=== PATIENT | female | born 1995 | race Caucasian/White ===

== ENCOUNTER 2019-12-05 22:26 | Emergency (ER) | payer BC ==
[2019-12-05 22:37] VITALS: BMI 34.1
--- NOTE | 2019-12-05 22:55 | PDOC ---
History of Present Illness - General Chief Complaint: Nausea/Vomiting Stated Complaint: VOMITTING Time Seen by Provider: 12/05/19 22:41 - History of Present Illness Initial Comments: Ms. Pizarro is a 24 y/o female, who has been caring for her aunt who was diagnosed with C. Diff yesterday, presenting today with nausea, vomiting, and diarrhea for the past day. Reports vomiting x5 and diarrhea x5 today. No blood in the stool or vomit. Reports hot flashes and chills but no fever. Reports generalized body aches. Reports abdominal cramping. Denies chest pain/shortness of breath. Denies headache. Denies leg swelling. Denies dysuria. Past History - Past Medical History Allergies/Adverse Reactions: Allergies Allergy/AdvReac Type Severity Reaction Status Date / Time No Known Allergies Allergy Verified 12/05/19 23:27 Home Medications: Ambulatory Orders Ashlyna 0.15-0.03-0.01 mg Tab 1 tab PO DAILY 12/05/19 Ondansetron [Ondansetron Odt] 8 mg PO BID PRN 3 Days #6 tab.rapdis 12/06/19 COPD: No - Psycho Social/Smoking Cessation Hx Smoking History: Never smoked Have you smoked in the past 12 months: No Information on smoking cessation initiated: No Hx Alcohol Use: No Drug/Substance Use Hx: No Review of Systems - Review of Systems Comments:: GENERAL/CONSTITUTIONAL: No fever. Reports chills. No weakness._ HEAD, EYES, EARS, NOSE AND THROAT: No change in vision. No change in hearing. No sore throat._ CARDIOVASCULAR: No chest pain or shortness of breath_ RESPIRATORY: Denies cough, hemoptysis_ GASTROINTESTINAL: Reports abdominal cramps, nausea, vomiting, diarrhea. GENITOURINARY: No dysuria, frequency, or change in urination._ MUSCULOSKELETAL: No joint or muscle swelling or pain. No neck or back pain._ SKIN: No rash_ NEUROLOGIC: No headache, vertigo, loss of consciousness, or change in strength/ sensation._ ENDOCRINE: No increased thirst. No abnormal weight change_ HEMATOLOGIC/LYMPHATIC: No anemia, easy bleeding, or history of blood clots._ ALLERGIC/IMMUNOLOGIC: No hives or skin allergy._ *Physical Exam - Vital Signs Last Vital Signs Temp Pulse Resp BP Pulse Ox 98.5 F 107 H 17 136/85 100 12/05/19 22:32 12/05/19 22:32 12/05/19 22:32 12/05/19 22:32 12/05/19 22:32 - Physical Exam GENERAL: Awake, alert, and oriented to person/place/time, in no acute distress_ HEAD: No signs of trauma, normoc ephalic, atraumatic _ EYES: PERRLA, EOMI, sclera anicteric, conjunctiva clear_ ENT: Hearing grossly normal, nares patent, oropharynx clear without exudates. No uvular deviation. Moist mucosa_ NECK: Normal ROM, supple, no lymphadenopathy, JVD, or masses_ LUNGS: No distress, speaks in full sentences, clear to auscultation bilaterally _ HEART: Regular rate and rhythm, normal S1 and S2, no murmurs appreciated, peripheral pulses normal and equal bilaterally._ ABDOMEN: Soft, nontender, normoactive bowel sounds. No guarding, no rebound. No masses_ EXTREMITIES: Normal inspection, Normal range of motion, no edema. No clubbing or cyanosis_ NEUROLOGICAL: Cranial nerves II through XII grossly intact. Normal speech, normal gait, no focal sensorimotor deficits _ SKIN: Warm, Dry, normal turgor, no rashes or lesions noted_ ED Treatment Course - LABORATORY CBC & Chemistry Diagram: 12/06/19 00:16 12/06/19 00:16 Medical Decision Making - Medical Decision Making 12/05/19 23:04 24 y/o female presenting with abdominal cramps, nausea, vomiting, diarrhea. Reports hot flashes and chills but no fever. Was caring for aunt with c. Diff yesterday. No recent abx use in patient or aunt. Not immunocompromised. -cbc, cmp, lipase -ua, ucx, upreg -stool culture for c. diff -zofran, fluids, tylenol 12/06/19 02:08 Pt reassessed. Reports feeling much improved. 12/06/19 02:31 Positive ketones in UA. Will give additional 1L of NS. Urine Test Results Urine Color Yellow 12/06/19 00:05 Urine Appearance Cloudy 12/06/19 00:05 Urine pH 5.0 (5.0-8.0) 12/06/19 00:05 Ur Specific [place] 1.034 (1.010-1.035) 12/06/19 00:05 Urine Protein Negative (NEGATIVE) 12/06/19 00:05 Urine Glucose (UA) Negative (NEGATIVE) 12/06/19 00:05 Urine Ketones 2+ (NEGATIVE) H 12/06/19 00:05 Urine Blood Negative (NEGATIVE) 12/06/19 00:05 Urine Nitrite Negative (NEGATIVE) 12/06/19 00:05 Urine Bilirubin Negative (NEGATIVE) 12/06/19 00:05 Ur Leukocyte Esterase Negative (NEGATIVE) 12/06/19 00:05 12/06/19 02:30 Pt signed out to Dr. Sherly Dorado pending lab results. Discharge - Discharge Information Problems reviewed: Yes Clinical Impression/Diagnosis: Nausea vomiting and diarrhea Condition: Stable Disposition: HOME - Admission No - Additional Discharge Information Prescriptions: Ondansetron [Ondansetron Odt] 8 mg PO BID PRN 3 Days #6 tab.rapdis PRN Reason: Nausea And/Or Vomiting - Follow up/Referral Referrals: Galindo Contreras MD [Staff Physician] - - Patient Discharge Instructions Patient Printed Discharge Instructions: DI for Nausea -- Adult, DI for Vomiting -- Adult Additional Instructions: Please take Zofran 8 mg twice per day as needed for your nausea. If you experience any new, worsening, or concerning symptoms, or the nausea/ vomiting/diarrhea does not improve after a few days, please see your primary care doctor or return to the emergency room. - Post Discharge Activity
[2019-12-05] MEDS ORDERED: ONDANSETRON 4 MG/2 ML VIAL IVPUSH ONE (23:00)
[2019-12-05] MEDS ORDERED: SODIUM CHLORIDE 0.9% 500 ML INFUS.BAG IV ONE (23:00)
[2019-12-05] MEDS ORDERED: ACETAMINOPHEN 1000 MG/100 ML VIAL (NON FORMULARY) IVPB ONE (23:09)
[2019-12-05] MEDS ORDERED: HYOSCYAMINE SULFATE 0.125 MG *ODT PO ONE (23:23)
--- NOTE | 2019-12-05 23:43 | PDOC ---
Documentation entered by Veda Lyons SCRIBE, acting as scribe for Nisha Larios MD. Nisha Larios MD: This documentation has been prepared by the Serena watts Brenda, SCRIBE, under my direction and personally reviewed by me in its entirety. I confirm that the documentation accurately reflects all work, treatment, procedures, and medical decision making performed by me. Attending Attestation - Resident Resident Name: Vish Lombardo - ED Attending Attestation I have performed the following: I have examined & evaluated the patient, The case was reviewed & discussed with the resident, I agree w/resident's findings & plan, Exceptions are as noted - HPI HPI: 12/05/19 23:19 The patient is a 24 year old female with a significant past medical history of who presents to the ED for evaluation of 1 day of nausea, 5 episodes of NBNB vomiting and 5 episodes of diarrhea today Patient states that she brought her on to to the emergency department yesterday and had been caring for her. She was ultimately diagnosed with C. difficile. Pt noted today that she began having diarrhea earlier today She tried eating and when she arrived home, she developed nausea and vomiting Pt as now had at least 5 episodes of NBNB emesis She has had liquid stools, pink tinged now Each time she eats she has diarrhea (+) hot flashes and chills, no fever. Allergies: NKA Social history: No reported hx of tobacco use, alcohol use or illicit drug use. 12/05/19 23:29 - Physicial Exam PE: 12/05/19 23:22 GENERAL: The patient is in no acute distress, patient appears to be in pain, patient in the position. ENT: Ears normal, nares patent, oropharynx clear without exudates. Dry mucous membranes. NECK: Normal range of motion, supple, no nuchal rigidity LUNGS: Breath sounds equal, clear to auscultation bilaterally. No wheezes, and no crackles. HEART: Regular rate and rhythm, normal S1 and S2 without murmur, rub or gallop. ABDOMEN: Soft, nondistended, upper abdominal tenderness to palpation, no lower abdominal tenderness to palpation, no involuntary guarding, no rebound EXTREMITIES: Normal range of motion, no edema. NEUROLOGICAL: Cranial nerves II through XII grossly intact. Normal speech. No focal neurological deficits. SKIN: Warm, Dry, normal turgor, no rashes or lesions noted. 12/05/19 23:40 - Medical Decision Making 12/05/19 23:41 24-year-old female presenting to the emergency department with a complaint of nausea, vomiting, diarrhea which began today. No associated systemic signs of illness. Patient is able to tolerate p.o. now however this results in diarrhea Patient does have upper abdominal tenderness to palpation Will do: Labs IV hydration Stool for culture Consider CT of the abdomen and pelvis Zofrtavo hyoscyamine Reassess Labs pending Signed out to Dr. Cummings
[2019-12-06 00:06] VITALS: BP 136/86; PULSE 97; TEMP 98.4
[2019-12-06] MEDS ORDERED: ACETAMINOPHEN INJECTION 100 ML IVPB ONE (00:16)
[2019-12-06 02:03] LABS: BASO % 0.3 % (0-2.0); EOS % 1.3 % (0-4.5); HEMATOCRIT 44.4 % (32.4-45.2); LYMPH % 8.4 % (8-40); MCH 29.5 pg (25.7-33.7); MCHC 33.8 g/dl (32.0-36.0); MEAN CELL VOLUME 87.4 fl (80-96); MEAN PLT VOLUME 8.8 fl (7.5-11.1); MONO % 5.3 % (3.8-10.2); NEUT % 84.7 % (42.8-82.8); PLATELET COUNT 414 K/MM3 (134-434); RBC 5.08 M/mm3 (3.60-5.2); RDW 12.6 % (11.6-15.6); WHITE BLOOD COUNT 10.2 K/mm3 (4.0-10.0)
[2019-12-06 02:09] LABS: URINE APPEARANCE CLOUDY; URINE BILIRUBIN NEGATIVE (NEGATIVE); URINE COLOR YELLOW; URINE GLUCOSE (UA) NEGATIVE (NEGATIVE); URINE KETONE 2+ (NEGATIVE); URINE LEUK ESTERASE NEGATIVE (NEGATIVE); URINE NITRITE NEGATIVE (NEGATIVE); URINE PROTEIN NEGATIVE (NEGATIVE)
[2019-12-06] MEDS ORDERED: SODIUM CHLORIDE 0.9% 500 ML INFUS.BAG IV ONE (02:30)
[2019-12-06 02:32] LABS: ALBUMIN 3.8 g/dl (3.4-5.0); BILIRUBIN,TOTAL 0.8 mg/dL (0.2-1); BLOOD UREA NITROGEN 13.9 mg/dL (7-18); CALCIUM 9.6 mg/dL (8.5-10.1); CREATININE 0.8 mg/dL (0.55-1.3); TOT PROT 7.5 g/dl (6.4-8.2)
--- NOTE | 2019-12-06 02:38 | PDOC ---
*Physical Exam - Vital Signs Last Vital Signs Temp Pulse Resp BP Pulse Ox 98.4 F 97 H 18 136/86 99 12/05/19 23:28 12/05/19 23:28 12/05/19 23:28 12/05/19 23:28 12/05/19 23:28 ED Treatment Course - LABORATORY CBC & Chemistry Diagram: 12/06/19 00:16 12/06/19 00:16 - ADDITIONAL ORDERS Additional order review: Laboratory Results 12/06/19 12/06/19 12/06/19 00:16 00:05 00:05 Sodium 140 Potassium 4.0 Chloride 107 Carbon Dioxide 23 Anion Gap 10 BUN 13.9 Creatinine 0.8 Est GFR (CKD-EPI)AfAm 118.76 Est GFR (CKD-EPI)NonAf 102.47 Random Glucose 83 Calcium 9.6 Total Bilirubin 0.8 AST 10 L ALT 21 Alkaline Phosphatase 56 Total Protein 7.5 Albumin 3.8 Urine Color Yellow Urine Appearance Cloudy Urine pH 5.0 Ur Specific [place] 1.034 Urine Protein Negative Urine Glucose (UA) Negative Urine Ketones 2+ H Urine Blood Negative Urine Nitrite Negative Urine Bilirubin Negative Urine Urobilinogen 1.0 Ur Leukocyte Esterase Negative Urine HCG, Qual Negative - Medications Given in the ED: ED Medications Discontinued Medications Generic Name Dose Route Start Last Admin Trade Name Freq PRN Reason Stop Dose Admin Acetaminophen 1,000 mg 12/05/19 23:09 12/06/19 00:44 Ofirmev Injection - IVPB 12/05/19 23:10 1,000 mg ONCE ONE Administration Hyoscyamine Sulfate 0.125 mg 12/05/19 23:23 12/06/19 01:23 Levsin Odt - PO 12/05/19 23:24 0.125 mg ONCE ONE Administration Ondansetron HCl 4 mg 12/05/19 23:00 12/05/19 23:46 Zofran Injection IVPUSH 12/05/19 23:01 4 mg ONCE ONE Administration Sodium Chloride 1,000 ml 12/05/19 23:00 12/05/19 23:46 Normal Saline - IV 12/05/19 23:01 1,000 ml ONCE ONE Administration Medical Decision Making - Medical Decision Making 12/06/19 02:37 nausea, vomiting, diarrheas x5 abdominal cramping amd body aches stool culture sent for c-diff due to close contact with infected person pending 1L ns cbc results lipase results if normal can d/c after fluids Discharge - Discharge Information Problems reviewed: Yes Clinical Impression/Diagnosis: Nausea vomiting and diarrhea Condition: Stable Disposition: HOME - Additional Discharge Information Prescriptions: Ondansetron [Ondansetron Odt] 8 mg PO BID PRN 3 Days #6 tab.rapdis PRN Reason: Nausea And/Or Vomiting - Follow up/Referral Referrals: Galindo Contreras MD [Staff Physician] - - Patient Discharge Instructions Patient Printed Discharge Instructions: DI for Nausea -- Adult, DI for Vomiting -- Adult Additional Instructions: Please take Zofran 8 mg twice per day as needed for your nausea. If you experience any new, worsening, or concerning symptoms, or the nausea/ vomiting/diarrhea does not improve after a few days, please see your primary care doctor or return to the emergency room. - Post Discharge Activity
== END 2019-12-06 04:18 | disposition home or self-care (01) ==
LOC: JER 22:26 → MERGE 22:26 → JER 12-06 04:18
PROC: 3E033NZ Introduction of Analgesics, Hypnotics, Sedatives into Peripheral Vein, Percutaneous Approach (ICD-10-PCS; principal; 2019-12-05)
PROC: 3E033GC Introduction of Other Therapeutic Substance into Peripheral Vein, Percutaneous Approach (ICD-10-PCS; 2019-12-05)
DX: R11.2 Nausea with vomiting, unspecified (principal); R19.7 Diarrhea, unspecified
CPT/HCPCS: 36415; 80053; 81003; 83690; 84703; 85025; 87045; 87046; 87086; 87186; 87324; 87449; 99283-25; J0131